=== PATIENT | male | born 1980 | race Caucasian/White ===

== ENCOUNTER 2024-06-17 20:01 | Emergency (ER) | payer MEDICAID ==
[~2024-06-17] VITALS: Ht 170.2 cm; Wt 82.0 kg
[2024-06-17 20:03] VITALS: TEMP 98.4; O2SAT 98
[2024-06-17] MEDS: HYDROCODONE/ACETAMINOPHEN 5/325MG TABLET PO ONE (22:22)
[2024-06-17] MEDS: IBUPROFEN 400MG TABLET PO ONE (22:22)
[2024-06-17] MEDS ORDERED: IBUP-2028 MT (22:24)
[2024-06-17] MEDS ORDERED: TOPUD PO (22:24)
[2024-06-17 22:58] VITALS: BP 123/80; PULSE 80; RESP 16; O2SAT 97
== END 2024-06-17 23:00 | disposition home or self-care (01) ==
LOC: ER 20:01
DX: S93.401A Sprain of unspecified ligament of right ankle, initial encounter (principal); Z90.49 Acquired absence of other specified parts of digestive tract; W01.0XXA Fall on same level from slipping, tripping and stumbling without subsequent striking against object, initial encounter; Y93.89 Activity, other specified; Y92.89 Other specified places as the place of occurrence of the external cause; Y99.8 Other external cause status
CPT/HCPCS: 29515; 73610; 99283